=== PATIENT | male | born 1950 | race Caucasian/White ===

== ENCOUNTER 2020-04-12 09:21 | Day surgery (SDC) | payer MEDICARE ==
[2020-04-12] MEDS ORDERED: LACTATED RINGERS 1,000 ML IV ONE (09:39)
[2020-04-12] MEDS ORDERED: fentaNYL 250 MCG/5 ML VIAL IVP ONE (10:33)
[2020-04-12] MEDS ORDERED: MIDAZOLAM 2 MG/2 ML VIAL IVP ONE (10:33)
[2020-04-12] MEDS ORDERED: LACTATED RINGERS 500 ML IV ONE (10:54)
[2020-04-12 11:33] VITALS: BP 122/75
== END 2020-04-12 09:22 | disposition home or self-care (01) ==
LOC: SDS 09:21
PROVIDERS: ATTEND Surgery
DX: Z12.11 Encounter for screening for malignant neoplasm of colon (principal); Z86.010 Personal history of colon polyps; Z80.0 Family history of malignant neoplasm of digestive organs; K64.8 Other hemorrhoids
CPT/HCPCS: G0105; J3010; J7120

== ENCOUNTER 2020-04-19 11:14 | Outpatient (CLI) | payer MEDICARE ==
[2020-04-19] MEDS ORDERED: REGADENOSON 0.4 MG/5 ML SYRINGE IVP ONE (13:41)
[2020-04-19] MEDS ORDERED: AMINOPHYLLINE 500 MG/20 ML VIAL ONE (13:43)
--- NOTE | 2020-04-19 18:12 | Nuclear Medicine Report ---
PROCEDURE: Rest and exercise myocardial perfusion SPECT with gated imaging and ejection fraction INDICATIONS: 180 LB /DYSPNEA RADIOPHARMACEUTICAL: 9.1 mCi Tc-99m Myoview IV at rest and 26.5 mCi Tc-99m Myoview IV at peak exerci se. Ubu-vir-txdmaorq was performed. TECHNIQUE: Radiopharmaceutical was injected at peak stress test, and also at rest. SPECT images wer e obtained. SPECT myocardial perfusion images were displayed in short axis, horizontal long axis, an d vertical long axis views. Gated images were reviewed using AutoQU[employer] software. COMPARISON: None available. FINDINGS: Raw data: There is good myocardial labeling by radiotracer. No significant motion artifacts. Lung- to-heart ratio is 0.34 (normal is less than 0.38 for tetrafosmin tracer). Left ventricle function: Gated images demonstrate normal left ventricle wall thickening. No segment al wall motion abnormality. No transient ischemic dilation; TID is 0.97 (normal less than 1.3). The left ventricle resting end-diastolic volume is normal. Left ventricle stress ejection fraction is 6 1%; normal values are above 45%. Myocardial perfusion: There is a moderate size, moderately severe, reversible perfusion defect in th e left ventricular septum, suspicious for myocardial ischemia. On prone imaging, the defect is improv ed, suggesting a degree of attenuation artifact. IMPRESSION: 1. Probably abnormal cardiac perfusion images. There is a moderate size, moderately severe, reversibl e perfusion defect in the left ventricular septum, suspicious for myocardial ischemia. 2. Normal left ventricular volume and systolic function. 3. Please correlate with stress EKG report. PQRS ATTESTATIONS: Measure 322 - Is this imaging test primarily performed on a low-risk surgery patient for preoperative evaluation within 30 days preceding their low-risk non-cardiac surgery? Low-risk surgery is defined as cardiac or myocardial infarction less than 1%, including (but not limited to) endoscopic pr ocedures, superficial procedures, cataract surgery, and excisional breast surgery: Answer: No Measure 323 - Is this imaging test performed primarily for the monitoring of an asymptomatic patient who had percutaneous coronary intervention on the visit date or within 2 years of the visit date? An swer: No Measure 324 - Is this imaging test performed primarily for the initial detection and risk assessment on an asymptomatic, low coronary heart disease patient? Low CHD risk definition = clinicians should consider the maximum number of available patient factors used to estimate risk based on Virgil (A TP III criteria), typically age, gender, diabetes, smoking status, and use of blood pressure medicati on, and integrate age appropriate estimates for missing elements, such as LDL or standard blood press ure. Answer: No Reviewed by: Hoang Ramos MD on 04/19/2020 6:11 PM PST Approved by: Hoang Ramos MD on 04/19/2020 6:11 PM PST Station ID: [id number]
--- NOTE | 2020-04-19 21:03 | CARDIAC PROCEDURE NOTE ---
DATE OF SERVICE: 04/19/2020 Physician: Reanna Evangelista MD, [facility] INDICATION: Dyspnea. CARDIAC RISK FACTORS: Male gender, possibly untreated hypertension, elevated cholesterol, not on a statin. DESCRIPTION OF PROCEDURE: After signing informed consent, the patient underwent a Sabino-protocol treadmill stress test with nuclear myocardial perfusion imaging. RESTING HEART RATE: 56. HEART RATE: 136 (90% predicted maximum heart rate for age). RESTING BLOOD PRESSURE: 152/78. PEAK BLOOD PRESSURE: 233/73. The patient exercised for 7 minutes and 39 seconds on a Sabino-protocol treadmill stress test. He achieved a peak heart rate of 136 (90% PMHR) and 9.6 METs. The patient had moderate shortness of breath at peak, no chest pain with exertion. His perceived exertion was rated at 15/20 on the Aksh scale at peak. Oxygen saturation was 95-99% on room air throughout the test. RESTING EKG: Normal sinus rhythm, left atrial enlargement, poor R-wave progression. EKG AT PEAK: Occasional PACs, upsloping ST depressions developed in leads II, III, aVF, and V4 through V6 (not specific for ischemia). SUMMARY 1. Abnormal resting EKG. 2. ST segment changes develop, which were not specific for ischemia. 3. Fair exercise tolerance. 4. Nuclear images reported: Moderate-sized, reperfusion defect of the septum. LVEF 61%. IMPRESSION: 1. Abnormal stress test, suggesting coronary ischemia. RECOMMENDATIONS: 1. Light activity. 2. Aggressive risk factor modification. 3. Cardiology evaluation SHORTY. 4. Coronary angiogram. TD: 04/19/2020 15:05 [facility]
== END 2020-04-19 11:15 | disposition home or self-care (01) ==
LOC: DI 11:14
PROVIDERS: ATTEND Nurse Practitioner Family
DX: R94.31 Abnormal electrocardiogram [ECG] [EKG] (principal); E78.00 Pure hypercholesterolemia, unspecified; R94.39 Abnormal result of other cardiovascular function study
CPT/HCPCS: 78452; 93017; A9500

== ENCOUNTER 2021-02-26 11:24 | Outpatient (CLI) | payer MEDICARE ==
--- NOTE | 2021-02-27 09:08 | XRAY Report ---
PROCEDURE: Shoulder 3 View BILAT INDICATIONS: BILAT SHOULDER PAIN TECHNIQUE: 3 views of the bilateral shoulders were acquired. COMPARISON: None. FINDINGS: Bones: No acute, displaced fracture or dislocation. No suspicious bony lesions. Visualized ribs sophia ear intact. Minimal osteophytosis of the bilateral AC joints. Soft tissues: No suspicious soft tissue calcifications. IMPRESSION: No acute osseous abnormality. Reviewed by: Nathan Brown MD on 02/26/2021 12:16 PM PDT Approved by: Nathan Brown MD on 02/26/2021 12:16 PM PDT Station ID: [id number]
== END 2021-02-26 11:25 | disposition home or self-care (01) ==
LOC: DI.S 11:24
PROVIDERS: ATTEND Nurse Practitioner Family
DX: M25.511 Pain in right shoulder (principal); M25.512 Pain in left shoulder

== ENCOUNTER 2021-10-08 09:29 | Outpatient (CLI) | payer MEDICARE ==
[2021-10-08 09:45] LABS: BASOPHILS % (AUTO) 0.7 %; EOSINOPHILS # (AUTO) 0.1 10^3/uL (0.0-0.7); EOSINOPHILS % (AUTO) 0.9 %; HCT - HEMATOCRIT 46.1 % (42.0-52.0); HGB - HEMOGLOBIN 15.6 g/dL (14.0-18.0); LYMPHOCYTES # (AUTO) 2.1 10^3/uL (1.5-3.5); LYMPHOCYTES % (AUTO) 38.7 %; MEAN CORPUSCULAR HGB CONC 33.8 g/dL (32.0-36.0); MEAN CORPUSCULAR VOLUME 88.7 fL (80.0-94.0); MEAN PLATELET VOLUME 9.2 fL (7.4-11.4); MONOCYTES # (AUTO) 0.5 10^3/uL (0.0-1.0); MONOCYTES % (AUTO) 10.1 %; NEUTROPHILS # (AUTO) 2.7 10^3/uL (1.5-6.6); NEUTROPHILS % (AUTO) 49.4 %; PLT - PLATELET COUNT 217 10^3/uL (130-450); RED CELL DISTRIBUTION WIDTH 12.3 % (12.0-15.0); WHITE BLOOD COUNT 5.4 x10^3/uL (4.8-10.8)
[2021-10-08 10:06] LABS: ALBUMIN 4.2 g/dL (3.2-5.5); ALBUMIN/GLOBULIN RATIO 1.6 (1.0-2.2); ALKALINE PHOSPHATASE 42 IU/L (42-121); ALT ALANINE AMINOTRANSFERASE 26 IU/L (10-60); AST ASPARTATE AMINOTRANSFERASE 25 IU/L (10-42); BUN - BLOOD UREA NITROGEN 15 mg/dL (6-20); CALCIUM 9.2 mg/dL (8.5-10.3); CARBON DIOXIDE - CO2 26 mmol/L (21-32); CHLORIDE 104 mmol/L (101-111); CHOL/HDL RATIO 3.1 (<5.0); CHOLESTEROL 151 mg/dL; CK- CREATINE KINASE 86 IU/L (22-269); CREATININE 0.9 mg/dL (0.6-1.2); GFR - MDRD 83 (>89); GLUCOSE 100 mg/dL (70-100); HDL CHOLESTEROL 48 mg/dL; LDL CHOLESTEROL,CALCULATED 72 mg/dL; LDL/HDL RATIO 1.5 (<3.6); POTASSIUM 4.7 mmol/L (3.5-5.0); SODIUM 139 mmol/L (135-145); TOTAL PROTEIN 6.9 g/dL (6.7-8.2); TRIGLYCERIDES 156 mg/dL; VLDL CHOLESTEROL 31 mg/dL
[2021-10-08 10:16] LABS: THYROID STIMULATING HORMONE 2.85 uIU/mL (0.34-5.60)
== END 2021-10-08 09:30 | disposition home or self-care (01) ==
LOC: LAB 09:29
PROVIDERS: ATTEND Nurse Practitioner Family
DX: E78.2 Mixed hyperlipidemia (principal); R53.83 Other fatigue
CPT/HCPCS: 36415; 80053; 80061; 82550; 83721; 84443; 85025

== ENCOUNTER 2023-07-05 15:35 | Emergency (ER) | payer MEDICARE ==
[2023-07-05 15:58] VITALS: O2SAT 98
--- NOTE | 2023-07-05 16:46 | ED Physician Documentation ---
PD HPI OPHTHO - Stated complaint Stated Complaint: LT EYE SWELLING/BLOODY - Chief complaint Chief Complaint: Heent - History obtained from History obtained from: Patient - Additional information Additional information: Patient is a 73-year-old male with a history of A-fib on Eliquis presenting for evaluation of redness around the left eye that he noticed sometime around 9:00 today. He denies any injuries. No pain. No changes to his vision. Patient denies recently being ill with coughing, sneezing. Review of Systems Eyes: denies: Decreased vision, Discharge Neurologic: denies: Head injury PD PAST MEDICAL HISTORY - Past Medical History Past Medical History: Yes Cardiovascular: Hypertension, High cholesterol Respiratory: None Endocrine/Autoimmune: None GI: Colon polyps : None HEENT: None Psych: None Musculoskeletal: None Derm: None - Past Surgical History Past Surgical History: Yes General: Appendectomy Ortho: Other - Present Medications Home Medications: Ambulatory Orders Medication Instructions Recorded Confirmed Aspirin Chewable [[facility] 81 mg PO ONCE 04/11/20 04/12/20 Aspirin] - Allergies Allergies/Adverse Reactions: Allergies Allergy/AdvReac Type Severity Reaction Status Date / Time No Known Drug Allergies Allergy Verified 07/05/23 15:39 - Social History Does the pt smoke?: No Smoking Status: Never smoker Does the pt drink ETOH?: No Does the pt have substance abuse?: No - Immunizations Immunizations are current?: Yes PD ED PE NORMAL - General General: Alert and oriented X 3, No acute distress, Well developed/nourished - HEENT HEENT: Atraumatic, PERRL, EOMI, Other (No tenderness around orbit) - Derm Derm: Warm and dry - Neuro Neuro: Alert and oriented X 3, No motor deficit, Normal speech PD ED PE EXPANDED - Eyes Eyes: Visual acuity - see nn, PERRL, EOMI, Normal eyelids, Nl conjunctiva/sclera, Subconj hemorrhage (L eye - medially and lower lateral) Results - Vitals Vitals: Vital Signs - 24 hr 07/05/23 07/05/23 15:39 16:53 Temperature 36.8 C Heart Rate 61 68 Respiratory 16 17 Rate Blood Pressure 148/78 H 133/69 H O2 Saturation 98 98 Oxygen O2 Source Room air PD Medical Decision Making - ED course ED course: Patient presenting for evaluation of redness to the left eye that he developed sometime today. He is on Eliquis for A-fib. There is no reported trauma. His visual acuity is intact. There is no pain. There is no outward signs of traum a. There is no signs of infection. There is no signs of globe rupture or increased IOP. Systolic blood pressure is around 148.Discussed diagnosis of subconjunctival hemorrhage and that it may take a few weeks for the blood to reabsorb. Recommend however continuing on his Eliquis for stroke prevention. Discussed need for follow-up with ophthalmology and advised on concerning symptoms to return for. Departure - Departure Disposition: Home, Self Care Clinical Impression: Subconjunctival hemorrhage Qualifiers: Laterality: left Qualified Code(s): H11.32 - Conjunctival hemorrhage, left eye Condition: Stable Instructions: Subconjunctival Hemorrhage Follow-Up: Robin Niño MD [Provider Admit Priv/Credential] - Within 1 week Comments: You have a subconjunctival hemorrhage in your left eye. You are at increased risk for these as you are on a blood thinner called Eliquis. At this time and there is no issue with your vision and there is no pain. This should resolve on its own over the course of the next few weeks. Continue with taking your Eliquis. Do not use contacts but you can continue with your glasses. Return to the ER with any worsening symptoms. I have listed the information for an tso for follow-up. Forms: PCP List Discharge Date/Time: 07/05/23 16:53
[2023-07-05 16:58] VITALS: BP 133/69
== END 2023-07-05 16:53 | disposition home or self-care (01) ==
LOC: ED 15:35
DX: H11.32 Conjunctival hemorrhage, left eye (principal); I48.91 Unspecified atrial fibrillation; Z79.01 Long term (current) use of anticoagulants; I10 Essential (primary) hypertension; E78.00 Pure hypercholesterolemia, unspecified; Z86.010 Personal history of colon polyps
CPT/HCPCS: 99282; 99283